=== PATIENT | male | born 1980 | race Caucasian/White ===

== ENCOUNTER 2022-07-27 06:27 | Day surgery (SDC) | payer SELFPAY ==
[~2022-07-27 06:27] MED LIST: Lactated Ringers 1,000 ML IV SCH; ceFAZolin 2 GM in Sodium Chloride 0.9% 50 ML IV ONE
[2022-07-27] MEDS ORDERED: Bupivacaine 0.5% 30 ML SDV ONE (07:18)
[2022-07-27] MEDS ORDERED: Lidocaine 1% 20 ML MDV ONE (07:19)
[2022-07-27] MEDS ORDERED: Bupivacaine 25%/EPINEPHrine/PF 30 ML ONE (07:47)
[2022-07-27] MEDS ORDERED: ceFAZolin 1 GM Vial ONE (07:55)
== END 2022-07-27 09:23 | disposition home or self-care (01) ==
LOC: MW.SDS 06:27 → EDBD 06:27 → MW.SDS 09:23
PROVIDERS: ATTEND Surgery
DX: L72.12 Trichodermal cyst (principal)
CPT/HCPCS: 11421; 11422; 11424; J0690; J7120; J3490